=== PATIENT | female | born 1980 | race Caucasian/White ===

== ENCOUNTER 2020-11-01 22:08 | Emergency (ER) | payer OTHER ==
[~2020-11-01] VITALS: Ht 167.6 cm; Wt 77.2 kg
[~2020-11-01 22:08] MED LIST: AMOXICILLIN500 MG OR; AUGMENTIN875 MG OR; BACTRIM DS1 TAB PO; FLUZONE SPLT1 M1 IM; LORTAB 1010 MG PO; MUCINEX600 MG OR; NUVARING VA; PRENATA3 PO; PRENATA5 OR; TUBERSOL5 MG/0.1 M ID; TYLENOL COLD1 TA1 OR
[2020-11-02] MEDS ORDERED: IBUPROFEN600 MG PO (00:07)
[2020-11-02 00:21] VITALS: BP 122/74
== END 2020-11-02 00:28 | disposition home or self-care (01) ==
LOC: ED 22:08
DX: S93.402A Sprain of unspecified ligament of left ankle, initial encounter (principal); X50.0XXA Overexertion from strenuous movement or load, initial encounter; Y93.89 Activity, other specified; Y92.007 Garden or yard of unspecified non-institutional (private) residence as the place of occurrence of the external cause

== ENCOUNTER 2023-01-14 18:07 | Emergency (ER) | payer OTHER ==
[~2023-01-14] VITALS: Ht 167.6 cm; Wt 71.4 kg
[~2023-01-14 18:07] MED LIST changes: +IBUPROFEN600 MG PO
[2023-01-14] MEDS ORDERED: TRAMADOL HYDROC50 M1 PO (20:03)
[2023-01-14 20:14] VITALS: BP 119/77
== END 2023-01-14 20:25 | disposition home or self-care (01) ==
LOC: ED 18:07
DX: S82.62XA Displaced fracture of lateral malleolus of left fibula, initial encounter for closed fracture (principal); X50.0XXA Overexertion from strenuous movement or load, initial encounter; Y93.89 Activity, other specified; Y92.009 Unspecified place in unspecified non-institutional (private) residence as the place of occurrence of the external cause